=== PATIENT | female | born 1975 | race Hispanic/Latino ===

== ENCOUNTER 2024-08-17 09:44 | Emergency (ER) | payer OTHER ==
[~2024-08-17] VITALS: Ht 165.1 cm; Wt 102.1 kg
[~2024-08-17 09:44] MED LIST: DICYCLOMINE HCL20 MG PO; ONDANSETRON ODT4 MG PO; PANTOPRAZOLE SO40 MG PO
[2024-08-17 09:57] VITALS: TEMP 98.1
[2024-08-17 10:28] LABS: BASOPHILS % 0.4 % (0.0-1.0); EOSINOPHILS % 0.4 % (0.0-6.0); HEMATOCRIT 43.7 % (34.2-44.1); HEMOGLOBIN 13.7 g/dL (12.0-16.0); LYMPHOCYTES # (AUTO) 1.4 (1.0-3.2); LYMPHOCYTES % 13.8 % (18.0-39.1); MEAN CORPUSCULAR HEMOGLOBIN 29.9 pg (28-32); MEAN CORPUSCULAR HGB CONC 31.4 g/dL (31-35); MEAN CORPUSCULAR VOLUME 95.4 fL (81-99); MONOCYTES # (AUTO) 0.3 (0.2-0.8); MONOCYTES % 3.4 % (4.4-11.3); NEUTROPHILS # (AUTO) 8.1 (2.1-6.9); NEUTROPHILS % 81.4 % (38.7-80.0); PLATELET COUNT 372 x10e3/uL (140-360); RED BLOOD COUNT 4.58 x10e6/uL (3.6-5.1); WHITE BLOOD COUNT 9.91 x10e3/uL (4.8-10.8)
[2024-08-17 10:35] LABS: BILIRUBIN,URINE NEGATIVE (NEGATIVE); CLARITY,URINE CLOUDY (CLEAR); COLOR,URINE YELLOW (YELLOW); GLUCOSE, URINE NEGATIVE (NEGATIVE); KETONES,URINE NEGATIVE (NEGATIVE); LEUKOCYTE ESTERASE ,URINE NEGATIVE (NEGATIVE); NITRITE,URINE NEGATIVE (NEGATIVE); PH,URINE 7 (5 - 7); PROTEIN,URINE DIPSTICK NEGATIVE (NEGATIVE); URINE UROBILINOGEN 0.2 mg/dL (0.2 - 1)
[2024-08-17 10:39] LABS: BACTERIA,URINE MANY /HPF; EPITHELIAL CELLS,URINE MODERATE /LPF; TRANSITIONAL EPI CELLS,URINE FEW; WBC,URINE (MAN) 0-5 /HPF (0-5)
[2024-08-17 10:58] LABS: ALANINE AMINOTRANSFERASE 24 IU/L (0-55); ALBUMIN 3.8 g/dL (3.5-5.0); ALKALINE PHOSPHATASE 81 IU/L (40-150); BILIRUBIN,TOTAL 0.4 mg/dL (0.2-1.2); BLOOD UREA NITROGEN 15 mg/dL (7-26); BUN/CREATININE RATIO 21 (6-25); CALCIUM 9.1 mg/dL (8.4-10.2); CARBON DIOXIDE 19 mmol/L (22-29); CHLORIDE 105 mmol/L (98-107); CREATININE, SERUM 0.72 mg/dL (0.57-1.11); EST GLOMERULAR FILTRATION RATE 104 ML/MIN (>=60); GLUCOSE 134 mg/dL (74-118); LIPASE 17 U/L (8-78); SODIUM 135 mmol/L (136-145); TOTAL PROTEIN 7.8 g/dL (6.5-8.1)
[2024-08-17] MEDS: ONDANSETRON HCL INJ 2MG/ML 2ML 2 MG/ML VIAL IV STA (12:06)
[2024-08-17] MEDS: KETOROLAC TROMETHAMINE 30 MG/ML VIAL IV STA (12:06)
[2024-08-17] MEDS: SODIUM CHLORIDE 0.9% 1000ML 1,000 ML IV ONE (12:07)
[2024-08-17] MEDS ORDERED: ONDANSETRON ODT4 MG PO (12:30)
[2024-08-17 12:45] VITALS: PULSE 69; RESP 16; O2SAT 98
== END 2024-08-17 12:54 | disposition home or self-care (01) ==
LOC: ER 09:55
DX: R10.11 Right upper quadrant pain (principal); K80.50 Calculus of bile duct without cholangitis or cholecystitis without obstruction; R11.2 Nausea with vomiting, unspecified; E11.65 Type 2 diabetes mellitus with hyperglycemia; F41.9 Anxiety disorder, unspecified; F32.A Depression, unspecified; R94.31 Abnormal electrocardiogram [ECG] [EKG]; F17.210 Nicotine dependence, cigarettes, uncomplicated
CPT/HCPCS: 36415; 76705; 80053; 81001; 83690; 84702; 85025; 93005; 99284; J1885; J2405; J7030

== ENCOUNTER 2024-08-18 04:05 | Inpatient (IN) | payer OTHER ==
[2024-08-18] VITALS (8 sets, daily range): BP systolic 153–165; BP diastolic 85–95; PULSE 70–89; RESP 18; TEMP 98.2–98.8; O2SAT 97–100
[~2024-08-18] VITALS: Ht 167.6 cm; Wt 108.0 kg
[2024-08-18] MEDS: ONDANSETRON HCL INJ 2MG/ML 2ML 2 MG/ML VIAL IV STA (04:22)
[2024-08-18] MEDS: KETOROLAC TROMETHAMINE 30 MG/ML VIAL IV STA (04:22)
[2024-08-18] MEDS: DICYCLOMINE HCL 20 MG/2 ML VIAL IM ONE (04:23)
[2024-08-18 04:25] LABS: BASOPHILS # (AUTO) 0.1 (0.0-0.1); BASOPHILS % 0.3 % (0.0-1.0); EOSINOPHILS # (AUTO) 0.1 (0.0-0.4); EOSINOPHILS % 0.4 % (0.0-6.0); HEMATOCRIT 42.7 % (34.2-44.1); HEMOGLOBIN 13.8 g/dL (12.0-16.0); LYMPHOCYTES # (AUTO) 1.9 (1.0-3.2); LYMPHOCYTES % 10.6 % (18.0-39.1); MEAN CORPUSCULAR HEMOGLOBIN 30.1 pg (28-32); MEAN CORPUSCULAR HGB CONC 32.3 g/dL (31-35); MEAN CORPUSCULAR VOLUME 93.2 fL (81-99); MONOCYTES # (AUTO) 0.9 (0.2-0.8); MONOCYTES % 4.9 % (4.4-11.3); NEUTROPHILS % 83.3 % (38.7-80.0); PLATELET COUNT 372 x10e3/uL (140-360); RED BLOOD COUNT 4.58 x10e6/uL (3.6-5.1); RED CELL DISTRIBUTION WIDTH 13.1 % (11.7-14.4); WHITE BLOOD COUNT 18.01 x10e3/uL (4.8-10.8)
[2024-08-18 04:59] LABS: ALBUMIN 3.8 g/dL (3.5-5.0); ANION GAP 15.7 mmol/L (8-16); BILIRUBIN,TOTAL 0.4 mg/dL (0.2-1.2); CREATININE, SERUM 0.81 mg/dL (0.57-1.11); POTASSIUM 3.7 mmol/L (3.5-5.1); TOTAL PROTEIN 7.8 g/dL (6.5-8.1)
[2024-08-18] MEDS ORDERED: DEXTROSE 50% SYRINGE 50 ML IV PRN (05:15)
[2024-08-18] MEDS: Morphine 4mg INJECTION 4 MG/ML INJ IV PRN (05:32)
[2024-08-18] MEDS: SODIUM CHLORIDE 0.9% 1000ML 1,000 ML IV SCH (05:33)
[2024-08-18] MEDS: INSULIN REGULAR, HUMAN 100 UNIT/1 ML SQ SCH (07:30)
[2024-08-18] MEDS: ONDANSETRON HCL INJ 2MG/ML 2ML 2 MG/ML VIAL IV PRN (10:27)
[2024-08-18] MEDS ORDERED: Morphine 10mg syringe 10 MG/ML INJ ONE (19:45)
[2024-08-18] MEDS ORDERED: FENTANYL CITRATE/PF 100MCG/2 ML INJ ONE (19:45)
[2024-08-18] MEDS: HYDROMORPHONE 1MG/1ML INJ IV ONE (21:01)
[2024-08-19] VITALS (8 sets, daily range): BP systolic 103–142; BP diastolic 51–87; PULSE 82–102; RESP 18–20; TEMP 98.6–100; O2SAT 96–100
[2024-08-19] MEDS: HYDROMORPHONE 1MG/1ML INJ IV PRN (00:53)
[2024-08-19 05:30] LABS: BASOPHILS # (AUTO) 0.1 (0.0-0.1); BASOPHILS % 0.4 % (0.0-1.0); EOSINOPHILS # (AUTO) 0.1 (0.0-0.4); EOSINOPHILS % 0.7 % (0.0-6.0); HEMATOCRIT 39.2 % (34.2-44.1); HEMOGLOBIN 12.5 g/dL (12.0-16.0); LYMPHOCYTES # (AUTO) 1.7 (1.0-3.2); LYMPHOCYTES % 10.9 % (18.0-39.1); MEAN CORPUSCULAR HEMOGLOBIN 30.4 pg (28-32); MEAN CORPUSCULAR HGB CONC 31.9 g/dL (31-35); MEAN CORPUSCULAR VOLUME 95.4 fL (81-99); MONOCYTES # (AUTO) 0.8 (0.2-0.8); MONOCYTES % 5.2 % (4.4-11.3); NEUTROPHILS % 82.4 % (38.7-80.0); PLATELET COUNT 303 x10e3/uL (140-360); RED BLOOD COUNT 4.11 x10e6/uL (3.6-5.1); RED CELL DISTRIBUTION WIDTH 13.5 % (11.7-14.4); WHITE BLOOD COUNT 15.82 x10e3/uL (4.8-10.8)
[2024-08-19 05:53] LABS: ALBUMIN 3.1 g/dL (3.5-5.0); ALBUMIN/GLOBULIN RATIO 0.8 (0.8-2.0); ANION GAP 11.6 mmol/L (8-16); BILIRUBIN,TOTAL 0.8 mg/dL (0.2-1.2); CALCIUM 8.2 mg/dL (8.4-10.2); CREATININE, SERUM 0.73 mg/dL (0.57-1.11); POTASSIUM 3.6 mmol/L (3.5-5.1)
[2024-08-19] MEDS ORDERED: BUPIVACAINE 0.25% 30ML SDV ONE (14:09)
[2024-08-19] MEDS ORDERED: SUGAMMADEX SODIUM 200 MG/2 ML VIAL IV ONE (15:32)
[2024-08-19] MEDS: KETOROLAC TROMETHAMINE 30 MG/ML VIAL IV PRN (18:16)
[2024-08-20] VITALS: BP 108/71; PULSE 97; RESP 17; TEMP 98.4; O2SAT 100
[2024-08-20 04:00] VITALS: BP 100/60; PULSE 76; RESP 18; TEMP 99.2; O2SAT 98
[2024-08-20 06:00] LABS: BASOPHILS % 0.2 % (0.0-1.0); EOSINOPHILS % 0.1 % (0.0-6.0); HEMATOCRIT 35.8 % (34.2-44.1); HEMOGLOBIN 11.2 g/dL (12.0-16.0); LYMPHOCYTES # (AUTO) 1.1 (1.0-3.2); LYMPHOCYTES % 7.9 % (18.0-39.1); MEAN CORPUSCULAR HEMOGLOBIN 30.4 pg (28-32); MEAN CORPUSCULAR HGB CONC 31.3 g/dL (31-35); MONOCYTES # (AUTO) 0.8 (0.2-0.8); MONOCYTES % 5.8 % (4.4-11.3); NEUTROPHILS # (AUTO) 12.3 (2.1-6.9); NEUTROPHILS % 85.6 % (38.7-80.0); PLATELET COUNT 268 x10e3/uL (140-360); RED BLOOD COUNT 3.69 x10e6/uL (3.6-5.1); RED CELL DISTRIBUTION WIDTH 13.6 % (11.7-14.4); WHITE BLOOD COUNT 14.38 x10e3/uL (4.8-10.8)
[2024-08-20 06:23] LABS: ALBUMIN 2.5 g/dL (3.5-5.0); ALBUMIN/GLOBULIN RATIO 0.6 (0.8-2.0); ANION GAP 12.7 mmol/L (8-16); BILIRUBIN,TOTAL 0.5 mg/dL (0.2-1.2); CALCIUM 8.2 mg/dL (8.4-10.2); CREATININE, SERUM 0.71 mg/dL (0.57-1.11); POTASSIUM 3.7 mmol/L (3.5-5.1); TOTAL PROTEIN 6.6 g/dL (6.5-8.1)
[2024-08-20 08:41] VITALS: BP 119/72; PULSE 85; RESP 17; TEMP 98; O2SAT 99
[2024-08-20 08:47] VITALS: BP 119/72; PULSE 85; RESP 17; TEMP 98; O2SAT 99
[2024-08-20 11:42] VITALS: BP 122/73; PULSE 93; RESP 18; TEMP 98.1; O2SAT 100
[2024-08-20] MEDS: HYDROCODONE/APAP 7.5MG-325MG 1 EA TAB PO PRN (12:17)
[2024-08-20 16:55] VITALS: BP 102/71; PULSE 91; RESP 18; TEMP 98.7; O2SAT 100
[2024-08-20] MEDS ORDERED: ONDANSETRON HCL 4 MG ORAL DISINTEGRATING TAB PO PRN (18:15)
== END 2024-08-20 18:28 | disposition home or self-care (01) | DRG 418 ==
LOC: ER 04:17 → ERHOLD 05:14 → MED/SURG2 14:18
PROVIDERS: ADMIT Surgery; ATTEND Surgery
PROC: 0FT44ZZ Resection of Gallbladder, Percutaneous Endoscopic Approach (ICD-10-PCS; principal; 2024-08-19 14:30)
DX: K80.01 Calculus of gallbladder with acute cholecystitis with obstruction (principal); Q43.8 Other specified congenital malformations of intestine; K82.A1 Gangrene of gallbladder in cholecystitis; E11.9 Type 2 diabetes mellitus without complications
CPT/HCPCS: 36415; 80053; 81025; 82948; 83690; 85025; 88304; 88342; 94799; 99284; C1766; J1171; J1885; J2270; J2405; J2470; J2543; J7030